=== PATIENT | male | born 1955 | race Caucasian/White ===

== ENCOUNTER 2020-07-29 19:48 | Emergency (ER) | payer OTHER ==
--- NOTE | 2020-07-29 20:26 | EDM.PDOC ---
ED HPI GENERAL MEDICAL PROBLEM - General Chief Complaint: ENT Problem Stated Complaint: POSS BUG IN NOSE Time Seen by Provider: 07/29/20 20:12 Source of Information: Reports: Patient History Limitations: Reports: No Limitations - History of Present Illness INITIAL COMMENTS - FREE TEXT/NARRATIVE: 65-year-old male presents to the emergency department with complaints of possibly having a bug in his nose. He states that about 2 weeks ago he thought a bug may be flew in his nose and now over the past couple of days he states he has increased congestion in the left sinus. States that the bug would have been very small. He has not noted any fever, chills, nausea, vomiting or diarrhea. He denies any headache. He denies any drainage from his nose. He states is in his left nares. He denies any foul smell in his nose. He states he is traveling through [employer]. Admits to history of hypertension for which she takes medicines and takes 1 baby aspirin daily. - Related Data Allergies Allergy/AdvReac Type Severity Reaction Status Date / Time No Known Allergies Allergy Verified 07/29/20 20:12 Social & Family History - Tobacco Use Tobacco Use Status *Q: Never Tobacco User Second Hand Smoke Exposure: No - Caffeine Use Caffeine Use: Reports: None - Recreational Drug Use Recreational Drug Use: No ED ROS ENT - Review of Systems Review Of Systems: Comprehensive ROS is negative, except as noted in HPI. ED EXAM, ENT - Physical Exam Exam: See Below Exam Limited By: No Limitations General Appearance: Alert, WD/WN, No Apparent Distress Ears: Normal External Exam, Hearing Grossly Normal Nose: Normal Inspection, Normal Mucousa, No Blood, Injected Turbinates (Bilaterally). No: Foreign Body Mouth/Throat: Normal Inspection, Normal Lips Head: Atraumatic, Normocephalic Neck: Normal Inspection, Supple Respiratory/Chest: No Respiratory Distress, No Accessory Muscle Use Cardiovascular: Normal Peripheral Pulses, Regular Rate, Rhythm GI/Abdominal: No Distention (Male) Exam: Deferred Rectal (Males) Exam: Deferred Back: Normal Inspection Extremities: Normal Inspection Neurological: Alert, Oriented, Normal Cognition Psychiatric: Normal Affect Skin: Warm, Dry, Intact, Normal Color, No Rash Lymphatic: No Adenopathy Course - Vital Signs Text/Narrative:: Upon assessment, the patient's left nares was examined and there is no foreign body or bug noted. Patient does have turbinates swollen in both the right and left nares. However nothing acute is appreciated. Last Recorded V/S: Last Vital Signs Temp 97.3 F 07/29/20 20:10 Pulse 66 07/29/20 20:10 Resp 18 07/29/20 20:10 BP 156/79 H 07/29/20 20:10 Pulse Ox 96 07/29/20 20:10 Departure - Departure Time of Disposition: 20:25 Disposition: Home, Self-Care 01 Condition: Good Clinical Impression: Complaint of nasal congestion - Discharge Information Referrals: PCP,Not In Area [Primary Care Provider] - Additional Instructions: You were seen in the emergency department today with complaints of possibly having a bug in your left nares. Upon evaluation, there is no bug or foreign body in your left nares however your nasal cavity is swollen. You likely do have some type of seasonal allergies and have sinus congestion as a result. You may try to take Flonase nasal spray once daily per label instructions as this could decrease the inflammation and congestion. You could also try saline nasal spray or sinus rinses. Follow-up with your primary care provider once you return home. Sepsis Event Note (ED) - Evaluation Sepsis Screening Result: No Definite Risk - Focused Exam Vital Signs: Vital Signs Temp Pulse Resp BP Pulse Ox 07/29/20 20:10 97.3 F 66 18 156/79 H 96
== END 2020-07-29 20:46 | disposition home or self-care (01) ==
LOC: JD.ED 19:48
DX: R09.81 Nasal congestion (principal)
CPT/HCPCS: 99283